=== PATIENT | female | born 1950 | race Caucasian/White ===

== ENCOUNTER 2017-10-06 05:00 | Day surgery (SDC) | payer OTHER ==
[~2017-10-06 05:00] MED LIST: ATENOLOL25 MG PO; CALTRATE 600+D1 EACH PO; FOSAMAX70 MG PO; MACROBID 100 M100 MG PO; OMEPRAZOLE40 MG PO; ULTRACET PO
[2017-10-06] MEDS ORDERED: MACROBID 100 M100 MG PO (10:54)
[2017-10-06] MEDS ORDERED: ULTRACET PO (10:55)
== END 2017-10-06 12:37 | disposition home or self-care (01) ==
LOC: CIR.AMB 05:00
DX: N81.6 Rectocele (principal); N81.11 Cystocele, midline; N81.5 Vaginal enterocele

== ENCOUNTER 2018-05-12 05:15 | Day surgery (SDC) | payer OTHER ==
[~2018-05-12 05:15] MED LIST changes: +ATORVASTATIN CA10 MG PO
[2018-05-12] MEDS ORDERED: MACROBID 100 M100 MG PO (10:13)
[2018-05-12] MEDS ORDERED: ULTRACET PO (10:14)
== END 2018-05-12 12:10 | disposition home or self-care (01) ==
LOC: CIR.AMB 05:15 → EDBD 05:15 → CIR.AMB 10:30
DX: N81.5 Vaginal enterocele (principal); L92.8 Other granulomatous disorders of the skin and subcutaneous tissue